=== PATIENT | female | born 1950 | race Caucasian/White ===

== ENCOUNTER 2024-09-13 08:26 | Outpatient (CLI) | payer MEDICARE ==
[2024-09-13] MEDS ORDERED: Iopamidol 300 61% 100 ML VIAL FS ONE (11:05)
== END 2024-09-13 08:27 | disposition home or self-care (01) ==
LOC: CSHCT 08:26
PROVIDERS: ATTEND Urology
DX: C64.2 Malignant neoplasm of left kidney, except renal pelvis (principal); I51.7 Cardiomegaly; K44.9 Diaphragmatic hernia without obstruction or gangrene; Z90.5 Acquired absence of kidney; K57.30 Diverticulosis of large intestine without perforation or abscess without bleeding
CPT/HCPCS: 36415; 71046; 74160; 82565